=== PATIENT | male | born 1960 | race Caucasian/White ===

== ENCOUNTER 2018-12-27 06:05 | Outpatient (CLI) | payer BC ==
[~2018-12-27] VITALS: Ht 193 cm; Wt 84.1 kg
[2018-12-27] MEDS ORDERED: CYCL10TA9 PO (10:30)
[2018-12-27] MEDS ORDERED: ACET325T38 PO (10:30)
== END 2018-12-27 10:30 | disposition home or self-care (01) ==
LOC: PREOP 06:05
PROVIDERS: ATTEND Surgery
DX: Z01.818 Encounter for other preprocedural examination (principal)

== ENCOUNTER 2018-12-30 07:31 | Day surgery (SDC) | payer BC ==
[~2018-12-30] VITALS: Ht 193 cm; Wt 84.1 kg
[2018-12-30] VITALS (11 sets, daily range): BP systolic 128–147; BP diastolic 78–107
[~2018-12-30 07:31] MED LIST: ACET325T38 PO; CYCL10TA9 PO
[2018-12-30] MEDS ORDERED: LACTATED RINGERS 1,000 ML IV PRN (07:44)
[2018-12-30] MEDS ORDERED: ceFAZolin 2 GM IV Premixed 50 ML IV ONE (07:45)
--- NOTE | 2018-12-30 07:45 | Progress Note-Pre Operative ---
Pre-Operative Progress Note H&P Reviewed The H&P was reviewed, patient examined and no changes noted. Date Seen by Provider: Dec 30, 2018 Time Seen by Provider: 07:44 Date H&P Reviewed: Dec 30, 2018 Time H&P Reviewed: 07:44 Pre-Operative Diagnosis: left inguinal hernia QUINTIN BRIONES DO Dec 30, 2018 07:45 POS
[2018-12-30] MEDS ORDERED: BUP/EPI 0.5% 1:200,000 (MARCAINE) 10ML VIAL IJ ONE ×2 (07:51→08:44)
[2018-12-30] MEDS ORDERED: fentaNYL INJECTION 100 MCG/2 ML AMP ONE (08:25)
[2018-12-30] MEDS ORDERED: MIDAZOLAM 2 MG/2 ML (VERSED) VIAL ONE (08:26)
[2018-12-30] MEDS ORDERED: EPINEPHrine INJECTION 1 MG/ML AMP ONE (08:48)
[2018-12-30] MEDS ORDERED: proPOfol 200 MG/20 ML (DIPRIVAN) VIAL IV ONE (09:00)
[2018-12-30] MEDS ORDERED: GLYCOPYRROLATE 0.2 MG/ML (ROBINUL) 2 ML VIAL ONE (09:00)
[2018-12-30] MEDS ORDERED: LIDOCAINE PF 2% 5 ML (XYLOCAINE) VIAL ONE (09:00)
[2018-12-30] MEDS ORDERED: ONDANSETRON 4 MG/2 ML (SDV) Z0FRAN ONE (09:00)
[2018-12-30] MEDS ORDERED: SEVOFLURANE (ULTANE) 15 ML INHAL SOLN ONE ×2 (09:00→09:32)
[2018-12-30] MEDS ORDERED: DEXAMETHASONE 10 MG/ML (DECADRON) 1 ML VIAL ONE (09:00)
[2018-12-30] MEDS ORDERED: ATROPINE INJ 0.4 MG/ML SDV ONE (09:19)
[2018-12-30] MEDS ORDERED: PHENYLEPHRINE 100 MCG/ML 10 ML (ANESTHESIA) SYR ONE (09:19)
--- NOTE | 2018-12-30 09:31 | Progress Note-Post Operative ---
Post-Operative Progess Note Surgeon (s)/Section 8 Property Manager (s) Surgeon QUINTIN BRIONES DO Section 8 Property Manager: Dr. Call Pre-Operative Diagnosis left inguinal hernia Post-Operative Diagnosis left incarcerated inguinal hernia Procedure & Operative Findings Date of Procedure 12/30/18 Procedure Performed/Findings incarcerated left inguinal hernia Anesthesia Type gen Estimated Blood Loss Estimated blood loss (mL): min Specimens/Packing Specimens Removed hernia sac QUINTIN BRIONES DO Dec 30, 2018 09:31 POS
[2018-12-30] MEDS ORDERED: DOCU-143 PO (09:33)
[2018-12-30] MEDS ORDERED: ACHD5005 PO (09:33)
--- NOTE | 2018-12-30 09:36 | Discharge Inst-Simple/Standard ---
Discharge Inst-Standard Discharge Medications New, Converted or Re-Newed RX: RX on Chart Patient Instructions/Follow Up Plan of Care/Instructions/FU: 2-3 weeks Maddi Activity as Tolerated: No Discharge Diet: Regular Diet Other Inst to Patient Follow up Appt: Make appointment for 2-3week. Instructions: No lifting greater than 10 pounds. No strenuous activity. May shower in 24 hours, no tub bath or soaking. Use incentive spirometer at home as directed. No Smoking Skin/Wound Care: You have special glue over incisions it will fall off on its own. Symptoms to Report: Appetite Changes, Extremity Discoloration, Numbness/Tingling, Swelling Increased, Bleeding Excessive, Eyesight Changes, Pain Increased, Urine Color Change, Constipation(Persistent), Fever over 101 degree F, Pain/Pressure in ch est, Urinating Difficulty, Cough Up/Vomit Blood, Heart Beat Irreg/Pounding, Pain/Pressure in jaw, Vaginal Bleeding Increase, Cramps in feet or legs, Lightheadedness, Pain/Pressure in shoulder, Diarrhea(Persistent), Memory Changes Suddenly, Questions/Concerns, Weight gain consecutive days, Dizziness/Fainting, Nausea/Vomiting, Shortness of Breath, Weight gain over 2 pounds If questions or concerns contact your physician Or seek help at emergency department. QUINTIN BRIONES DO Dec 30, 2018 09:36 POS
[2018-12-30] MEDS ORDERED: ONDANSETRON 4 MG/2 ML (SDV) Z0FRAN IVP PRN (09:45)
[2018-12-30] MEDS ORDERED: morphine INJ 10 MG/ML 1ML (SYR OR VIAL) IVP ONE (09:45)
[2018-12-30] MEDS ORDERED: HYDROcodone/APAP 5 MG/325 MG (LORTAB) TAB PO ONE (11:00)
--- NOTE | 2018-12-30 11:13 | Anesthesia-General Post-Op ---
General Patient Condition Mental Status/LOC: Same as Preop Cardiovascular: Satisfactory Nausea/Vomiting: Absent Respiratory: Satisfactory Pain: Controlled Complications: Absent Post Op Complications Complications None Follow Up Care/Instructions Patient Instructions None needed. Anesthesia/Patient Condition Patient Condition Patient is doing well, no complaints, stable vital signs, no apparent adverse anesthesia problems. No complications reported per nursing. JAMES PRASAD CRNA Dec 30, 2018 11:13 POS
--- NOTE | 2018-12-30 22:55 | OPERATIVE REPORT ---
DATE OF SERVICE: 12/30/2018 PREOPERATIVE DIAGNOSIS: Left inguinal hernia. POSTOPERATIVE DIAGNOSIS: Incarcerated left inguinal hernia. PROCEDURE: Open left inguinal hernia repair of incarcerated inguinal hernia. SURGEON: Quintin Linda DO MEDICAL RESEARCH ASSISTANT: Dr. Call, assisted in retraction, dissection and closure. ANESTHESIA: General. ESTIMATED BLOOD LOSS: Minimal. COMPLICATIONS: None. INDICATIONS: The patient is a 58-year-old male with left inguinal hernia. He understands risks and benefits of procedure and wished to proceed with procedure. Consent was signed in the chart. DESCRIPTION OF PROCEDURE: The patient was taken to the operating suite. He was prepped and draped in sterile fashion. Timeout was performed. Local anesthetic was infiltrated in the left groin. The ilioinguinal nerve block performed. A 15 blade scalpel was used to make a skin incision in the left lower quadrant. Cautery was used to dissect down to the subcutaneous tissues until the external oblique was encountered. The external oblique was then opened through the external ring. The spermatic cord was then dissected around and a Nilwood drain was placed around it. Large hernia sac was present, which was then dissected off of the cord structures and opened. Within the hernia sac, colon was incarcerated through this area, but viable. The attachments to the hernia sac were then mobilized and freed with Mcgregor and once the hernia contents were freed, they were pushed back into the abdominal cavity. The hernia sac was then twisted and ligated with a 0 Vicryl suture. A Parietex mesh was then cut to size and secured to Jameel's ligament and then incorporated around the spermatic cord and placed under the external oblique. The wound was then irrigated with copious amounts of irrigation and suction. The external oblique was then closed using 2-0 Vicryl in a running fashion, recreating the external ring. Subcutaneous tissues were then reapproximated using 3-0 Vicryl and the skin was then closed using 4-0 Monocryl in subcuticular fashion. The abdomen was then washed and dried. Skin Affix was placed over the incision. The patient tolerated procedure well without any complications and taken to recovery room in stable condition. Job ID: [id number] DocumentID: [id number] Dictated Date: 12/30/2018 19:44:40 High Lighter Date: 12/30/2018 22:53:55 Dictated By: QUINTIN LINDA DO
== END 2018-12-30 11:42 | disposition home or self-care (01) ==
LOC: SDC 07:31
PROVIDERS: ATTEND Surgery
DX: K40.30 Unilateral inguinal hernia, with obstruction, without gangrene, not specified as recurrent (principal); Z11.2 Encounter for screening for other bacterial diseases
CPT/HCPCS: 87081